=== PATIENT | female | born 2000 | race Caucasian/White ===

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

== ENCOUNTER → 2019-01-03 | Outpatient (CLI) | payer OTHER | END | disposition home or self-care (01) | LOC: LAB.O 12:05 | PROVIDERS: ATTEND Family Medicine | DX: Z34.91 Encounter for supervision of normal pregnancy, unspecified, first trimester (principal); D72.829 Elevated white blood cell count, unspecified ==

== ENCOUNTER → 2019-01-16 | Outpatient (CLI) | payer OTHER ==
--- NOTE | 2019-01-17 19:31 | US ---
EXAM DESCRIPTION: OB ,Early (0-14wks): Ultrasound. CLINICAL HISTORY: 18 years Female routine care. unknown. LMP unknown. First trimester estimated age. Clinical age is 7 weeks and 4 days with WENDY 08/31/2019. COMPARISON: None. TECHNIQUE: Transpelvic scanning through the urine filled bladder: Endovaginal scanning: Bird-scale and Doppler modes. FINDINGS: Uterus: 8.9 x 5.7 x 5.0 cm. Uterus is anteverted. Gestational sac: Well-defined and oval shape AFV: Subjectively normal. pole: Mean crown-rump length is 1.83 cm corresponding to EGA 8 weeks and 2 days. Yolk sac: Present. 5 mm diameter. heart tones: 175 bpm. Subchorionic hemorrhage: None. Cul-de-sac: No fluid Comments: EGA of 8 weeks and 2 days corresponds to WENDY 08/26/2019. Left ovary 2.1 x 1.4 x 1.3 cm. Normal color Doppler vascularity. No dominant cyst.. No adnexal mass or free fluid. Right ovary 2.0 x 1.9 x 1.7 cm. 3.2 mL. Normal color Doppler vascularity. No dominant cyst. No adnexal mass or free fluid. IMPRESSION: 1. Single living intrauterine gestation with estimated age by ultrasound 8 weeks and 2 days with WENDY 08/26/2019. This is 5 days older than the clinical estimated age. Yolk sac present. Subjectively normal fluid volume. 2. No subchorionic hemorrhage. No free fluid in the cul-de-sac. Ovaries normal size and vascularity. No dominant solid mass or cyst in the adnexa.. Electronically signed by: Mike Marquez MD 01/17/2019 7:30 PM [facility]
== END ==
LOC: US 14:28
PROVIDERS: ATTEND Family Medicine
DX: Z34.01 Encounter for supervision of normal first pregnancy, first trimester (principal)